=== PATIENT | male | born 1960 | race Caucasian/White ===

== ENCOUNTER 2021-02-22 12:26 | Emergency (ER) | payer BC ==
[~2021-02-22] VITALS: Ht 182.9 cm; Wt 98.0 kg
[2021-02-22] MEDS ORDERED: BISACODYL 10 MG SUPP.RECT PR ONE (13:30)
[2021-02-22] MEDS ORDERED: GLYCERIN ADULT 1 SUPP.RECT. PR ONE (13:30)
--- NOTE | 2021-02-22 14:10 | RAD ---
2 view abdominal series and PA view chest x-ray Clinical indications: Constipation. FINDINGS: No obstructive bowel pattern is evident. No free intraperitoneal air is seen. No significan t air-fluid levels are seen. No significant fecal retention is seen. The osseous structures are intac t. Chest x-ray demonstrates an increase in the interstitium bilaterally without Lew B line's or lung consolidation or lung mass. No pleural effusion or pneumothorax is seen. Heart size is mildly enlarge d. Pulmonary vasculature and mediastinum and both darío are unremarkable. IMPRESSION: No acute abdominal finding is seen. No significant fecal retention. Mild cardiomegaly. Bilateral interstitial thickening which may represent acute/chronic bronchitis or interstitial pneumo nitis. Electronically signed by: Christopher Alicia MD (02/22/2021 2:07 PM) [id number]
--- NOTE | 2021-02-22 14:19 | PHYS DOC ---
Past History Past Surgical History: No Surgical History General Adult EDM: Chief Complaint: CONSTIPATION HPI: HPI: Patient is a 60-year-old male coming in for multiple complaints. Patient states that for the past 3 to 4 days he has had fatigue and nausea. Patient states that he is also felt bloated. He thought he might need to have a bowel movement and so 4 days ago took some milk of magnesia. States that he had some hard stools. Last bowel movement 2 days ago. Patient denies any fevers, cough, vomiting. Denies any medical or surgical history, does not take any medications at home and denies tobacco and drug use. States he drinks occasionally. Has not had his Covid vaccines Review of Systems: Review of Systems: All other systems within normal limits except for as noted in the HPI Current Medications: Current Meds: Current Medications Medications (Trade) Dose Ordered Sig/Kilo Start Time Stop Time Status Last Admin Dose Admin Bisacodyl (Dulcolax Supp) 10 mg 1X ONCE 02/22/21 13:30 02/22/21 13:31 DC 02/22/21 13:47 10 MG Glycerin (Sani-Supp Adult) 1 supp 1X ONCE 02/22/21 13:30 02/22/21 13:31 DC 02/22/21 13:47 1 SUPP Allergies: Allergies: Allergies Coded Allergies Type Severity Reaction Last Updated Verified No Known Drug Allergies 02/22/21 No Physical Exam: PE: Constitutional: Well developed, well nourished, no acute distress, non-toxic appearance. [] HENT: Normocephalic, atraumatic, bilateral external ears normal, nose normal. [] Eyes: PERRLA, conjunctiva normal, no discharge. [] Neck: No rigidity, supple, no stridor. [] Cardiovascular: Regular rate and rhythm, brisk cap refill [] Lungs & Thorax: Non labored symmetric respirations, no tachypnea or respiratory distress [] Abdomen: Soft, nondistended. Skin: Warm, dry, no erythema, no rash. [] Back: Unremarkable Extremities: No deformities, range of motion grossly intact, no lower extremity edema [] Neurologic: Alert and oriented X 3, no focal deficits noted. [] Psychologic: Affect normal, judgement normal, mood normal. [] Current Patient Data: Vital Signs: Vital Signs Date Time Temp Pulse Resp B/P (MAP) Pulse Ox O2 Delivery O2 Flow Rate FiO2 02/22/21 12:50 97.6 57 16 145/90 (108 95 EKG: EKG: Sinus rhythm, heart rate 50 beats minute, normal axis, no isolation or de pression, no ectopy. [] Radiology/Procedures: Radiology/Procedures: [][address] [id number] IMAGING REPORT Signed PATIENT: DONAL HILLS ACCOUNT: [id number] : 1960 LOCATION: ER AGE: 60 SEX: M EXAM STATUS: REG ER ORD. PHYSICIAN: WAGNER BRITT MD REASON: constipation PROCEDURE: ACUTE ABDOMEN SERIES 2 view abdominal series and PA view chest x-ray Clinical indications: Constipation. FINDINGS: No obstructive bowel pattern is evident. No free intraperitoneal air is seen. No significant air-fluid levels are seen. No significant fecal retention is seen. The osseous structures are intact. Chest x-ray demonstrates an increase in the interstitium bilaterally without Lew B line's or lung consolidation or lung mass. No pleural effusion or pneumothorax is seen. Heart size is mildly enlarged. Pulmonary vasculature and mediastinum and both darío are unremarkable. IMPRESSION: No acute abdominal finding is seen. No significant fecal retention. Mild cardiomegaly. Bilateral interstitial thickening which may represent acute/chronic bronchitis or interstitial pneumonitis. Electronically signed by: Heather Alicia MD (02/22/2021 2:07 PM) [id number] DICTATED AND SIGNED BY: HEATHER ALICIA MD DATE: 02/22/21 1403 CC: WAGNER BRITT MD; PCP,NO ~MTH0 0 Heart Score: C/O Chest Pain: No HEART Score for Chest Pain: HEART Score for Chest Pain Response (Comments) Value History Slighlty/Non-Suspicious 0 ECG Normal 0 Age >45 - < 65 1 Risk Factors 1 or 2 Risk Factors 1 Troponin < Normal Limit 0 Total 2 Risk Factors: Risk Factors: DM, Current or recent (<one month) smoker, HTN, HLP, family history of CAD, obesity. Risk Scores: Score 0 - 3: 2.5% MACE over next 6 weeks - Discharge Home Score 4 - 6: 20.3% MACE over next 6 weeks - Admit for Clinical Observation Score 7 - 10: 72.7% MACE over next 6 weeks - Early Invasive Strategies Course & Med Decision Making: Course & Med Decision Making Pertinent Labs and Imaging studies reviewed. (See chart for details) [] Damian Disclaimer: Damian Disclaimer: This electronic medical record was generated, in whole or in part, using a voice recognition dictation system. Departure Departure: Impression: Primary Impression: Person under investigation for COVID-19 Additional Impression: Nausea Disposition: HOME / SELF CARE / HOMELESS Condition: STABLE Referrals: PCP,NO (PCP) Patient Instructions: Nausea, Adult Additional Instructions: You have been tested for or diagnosed with COVID-19. It is an infection caused by a new type of coronavirus. COVID-19 will cause cold-like or mild flu symptoms in most. It can cause more severe symptoms like problems breathing in some. There is no treatment for COVID-19. The body will clear the infection over time. Self-care will help to ease discomfort. Steps to Take: Self-Care Rest as needed. Healthy habits may help you feel better. Steps include: Choose healthy foods including fruits and vegetables. Drink water throughout the day. Get plenty of sleep each night. If you smoke, try to quit. It may ease breathing. Avoid alcohol. Keep Others Healthy The virus can spread to others. Droplets are released every time you sneeze or cough. The droplets can get into the mouth, nose, or eyes of people near you and lead to infection. To lower the chances of spreading COVID-19 to others: Stay at home until your doctor has said it is safe to leave. If you tested positive this will mean staying isolated until both of the following are true: At least 7 days have passed since the start of illness. You are free of fever for at least 72 hours without the use of medicine. During this time: - Avoid public areas, events, or transportation. Do not return to work or school until your doctor has said it is safe to do so. - Call ahead if you need to go to a medical center. Let them know you may have COVID-19. It will help them guide you where to go. They may also ask you to wear a facemask when you come to the office. - If you call for emergency medical services, let them know you may have COVID- 19. While at home: - Try to avoid close contact with others. Stay about 6 feet away. - If possible, spend most of your time in a separate room from others. - Use a face mask if you will be in close contact with others such as sharing a room or vehicle. - Have someone wipe down common surfaces in the home. Use household master deputy sheriff court security every day on areas like doorknobs, counters, or sinks. - Cough or sneeze into a tissue. Throw the tissue away right after use. If a tissue is not available, cough or sneeze into your elbow. - Wash your hands often. Wash them after sneezing or coughing. Use soap and water and wash for at least 20 seconds. Alcohol based hand machine heddle cleaner can be used if soap and water is not available. - Do not prepare food for others. Avoid sharing personal items like forks, spoons, or toothbrushes. - Avoid close contact with pets while you are sick. There is no evidence of the virus passing to pets. This is a safety step until more is known about this virus. Isolation can be frustrating. Social interaction can help. Keep in touch with friends and family through phone and tech options. You can still interact with others in your home, just keep a safe distance of about 6 feet. Follow-up: Your doctors office will check in with you to see if there are any changes in your health. You may be asked to keep track of symptoms to share with them. They will also let you know when you are clear to be in public again. Problems to Look Out For: Contact your doctor if your recovery is not going as you expect. Get emergency care if you have problems such as: - Trouble breathing - Nonstop chest pain or pressure - Changes in awareness, confusion, or problems waking - Lips or face have bluish color - Worsening of symptoms If you think you have an emergency, call for emergency medical services right away. As taken from [facility] Ondansetron (ONDANSETRON ODT) 4 Mg Tab.rapdis 1 TAB PO PRN Q6-8HRS for nausa, #16 TAB Prov: WAGNER BRITT MD 02/22/21 WAGNER BRITT MD Feb 22, 2021 14:19
[2021-02-22 15:10] LABS: BILIRUBIN,URINE NEG (NEG); CLARITY,URINE CLEAR; COLOR,URINE YELLOW; GLUCOSE,URINE NEG (NEG)
[2021-02-22 15:11] LABS: BACTERIA,URINE 0 /HPF (0-FEW); NITRITE,URINE NEG (NEG); RBC,URINE 0 /HPF (0-2); SQUAMOUS EPITHELIAL CELL,UR OCC /LPF; UROBILINOGEN,URINE 0.2 mg/dL (0.2 mg/dL); WBC,URINE 0 /HPF (0-4)
--- NOTE | 2021-02-22 15:24 | EKG ---
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
[2021-02-22 15:29] LABS: CALCIUM 8.7 mg/dL (8.5-10.1); CREATININE 0.8 mg/dL (0.7-1.3); GFR 98.9; POTASSIUM 4.5 mmol/L (3.5-5.1)
[2021-02-22 15:39] LABS: ALBUMIN 3.5 g/dL (3.4-5.0); ALBUMIN/GLOBULIN RATIO 0.9 (1.0-1.7); MAGNESIUM 2.4 mg/dL (1.8-2.4); PHOSPHORUS 3.9 mg/dL (2.6-4.7); TOTAL PROTEIN 7.5 g/dL (6.4-8.2)
[2021-02-22 16:05] LABS: BASO % 1 % (0-3); EOS % 1 % (0-3); HEMATOCRIT 44.5 % (39.0-53.0); HEMOGLOBIN 15.2 g/dL (13.0-17.5); LYMPH % 28 % (24-48); MEAN CORPUSCULAR HEMOGLOBIN 31 pg (25-35); MEAN CORPUSCULAR HGB CONC 34 g/dL (31-37); MEAN CORPUSCULAR VOLUME 92 fL (79-100); MONO # 0.3 x10^3/uL (0.0-1.1); MONO % 9 % (0-9); NEUT # 2.2 x10^3uL (1.8-7.7); NEUT % 61 % (31-73); PLATELET COUNT 161 x10^3/uL (140-400); RED BLOOD COUNT 4.86 x10^6/uL (4.30-5.70); RED CELL DISTRIBUTION WIDTH 12.8 % (11.5-14.5); WHITE BLOOD COUNT 3.6 x10^3/uL (4.0-11.0)
[2021-02-22 16:20] VITALS: BP 143/77
[2021-02-22] MEDS ORDERED: ONDA4TAB12 PO (16:32)
== END 2021-02-22 17:00 | disposition home or self-care (01) ==
LOC: ER 12:26
DX: U07.1 COVID-19 (principal)
CPT/HCPCS: 36415; 74022; 80053; 81001; 83735; 83880; 84100; 84484; 85025; 93005; 99285; C9803; U0003

== ENCOUNTER 2021-06-16 12:36 | Emergency (ER) | payer BC ==
[~2021-06-16] VITALS: Ht 172.7 cm; Wt 97.1 kg
[~2021-06-16 12:36] MED LIST: ONDA4TAB12 PO
[2021-06-16] MEDS ORDERED: IV NORMAL SALINE 1,000ML 1,000 ML IV SCH (13:00)
--- NOTE | 2021-06-16 13:01 | PHYS DOC ---
Past History Past Surgical History: No Surgical History Smoking: Non-smoker Alcohol Use: Rarely Drug Use: None Adult General HPI HPI Patient is a 60-year-old male presenting for nausea vomit diarrhea. This is an acute issue. Reports symptoms started approximately 72 hours ago, only potential concerning ingestion at that time was a quick trip hot dog. Also reports sick contact, his mother who has had similar symptoms. Nonetheless, reports 2 days ago presenting to local urgent care where he was seen and evaluated, ultimately administered an antiemetic injection which temporarily improved his symptoms. Yesterday, he followed up with his primary care physician and at that time had KUB performed that was unremarkable and he was discharged home with supportive care practices. Nonetheless, he presents for ongoing nausea, vomiting and loose stools. Reports since symptom onset he has had approximately 6 episodes of nonbloody nonbilious emesis. He also reports looser stools than usual without diarrhea; however, reports that he has been constipated past 24 hours. Denies any medical issues and takes no medications on a daily basis. He is unvaccinated against COVID-19 with no obvious COVID-19 contact. Review of Systems Review of Systems Fourteen body systems of review of systems have been reviewed. See HPI for pertinent positives and negative responses, other meier all other systems are negative, non-pertinent or non-contributory Allergies Allergies Allergies Coded Allergies Type Severity Reaction Last Updated Verified No Known Drug Allergies 02/22/21 No Physical Exam Physical Exam Constitutional: Well developed, well nourished, no acute distress, non-toxic appearance. HENT: Normocephalic, atraumatic, bilateral external ears normal, oropharynx moist, no oral exudates, nose normal. Eyes: PERRLA, EOMI, conjunctiva normal, no discharge. Neck: Normal range of motion, no tenderness, supple, no stridor. Cardiovascular: Heart rate regular, sinus rhythm, no murmurs rubs or gallops Lungs & Thorax: Bilateral breath sounds clear to auscultation Abdomen: Bowel sounds normal, soft, no tenderness, no masses, no pulsatile tj s. Nonsurgical abdomen, no peritoneal signs Skin: Warm, dry, no erythema, no rash. Back: No tenderness, no CVA tenderness. Extremities: No tenderness, no cyanosis, no clubbing, ROM intact, no edema. Neurologic: Alert and oriented X 3, grossly normal motor & sensory function, no focal deficits noted. Psychologic: Affect normal, judgement normal, mood normal. Current Patient Data Vital Signs Vital Signs Date Time Temp Pulse Resp B/P (MAP) Pulse Ox O2 Delivery O2 Flow Rate FiO2 06/16/21 13:26 98.4 63 20 176/108 (130) 98 Room Air Vital Signs Date Time Temp Pulse Resp B/P (MAP) Pulse Ox O2 Delivery O2 Flow Rate FiO2 06/16/21 13:26 98.4 63 20 176/108 (130) 98 Room Air Lab Results Laboratory Tests Test 06/16/21 12:54 06/16/21 13:02 06/16/21 13:12 Glucose (Fingerstick) 109 mg/dL White Blood Count 5.4 x10^3/uL Red Blood Count 4.87 x10^6/uL Hemoglobin 15.1 g/dL Hematocrit 44.1 % Mean Corpuscular Volume 91 fL Mean Corpuscular Hemoglobin 31 pg Mean Corpuscular Hemoglobin Concent 34 g/dL Red Cell Distribution Width 13.4 % Platelet Count 194 x10^3/uL Neutrophils (%) (Auto) 68 % Lymphocytes (%) (Auto) 23 % Monocytes (%) (Auto) 6 % Eosinophils (%) (Auto) 3 % Basophils (%) (Auto) 0 % Neutrophils # (Auto) 3.7 x10^3uL Lymphocytes # (Auto) 1.2 x10^3/uL Monocytes # (Auto) 0.3 x10^3/uL Eosinophils # (Auto) 0.1 x10^3/uL Basophils # (Auto) 0.0 x10^3/uL Sodium Level 142 mmol/L Potassium Level 4.1 mmol/L Chloride Level 104 mmol/L Carbon Dioxide Level 27 mmol/L Anion Gap 11 Blood Urea Nitrogen 13 mg/dL Creatinine 0.7 mg/dL Estimated GFR (Cockcroft-Gault) 115.4 BUN/Creatinine Ratio 19 Glucose Level 113 mg/dL Calcium Level 8.6 mg/dL Total Bilirubin 0.9 mg/dL Aspartate Amino Transf (AST/SGOT) 23 U/L Alanine Aminotransferase (ALT/SGPT) 28 U/L Alkaline Phosphatase 105 U/L Troponin I High Sensitivity 7 ng/L Total Protein 6.8 g/dL Albumin 3.4 g/dL Albumin/Globulin Ratio 1.0 Influenza Type A (Rapid) Negative Influenza Type B (Rapid) Negative SARS-CoV-2 Antigen (Rapid) Negative Current Medications Medications (Trade) Dose Ordered Sig/Kilo Route PRN Reason Start Time Stop Time Status Last Admin Dose Admin Sodium Chloride 1,000 ml @ 1,000 mls/hr Q1H IV 06/16/21 13:00 06/16/21 13:59 DC 06/16/21 12:40 EKG EKG EKG ordered and interpreted by myself 1312 hrs. as sinus rhythm at 54 bpm, unremarkable intervals, no axis deviation, no acute ischemic findings, no STEMI Radiology/Procedures Radiology/Procedures EXAM: Chest, single view. HISTORY: Fatigue. COMPARISON: None. FINDINGS: A frontal view of the chest is obtained. There is no infiltrate, pleural effusion or pneumothorax. The heart is normal in size. There is an incidental healed left clavicle fracture. IMPRESSION: No acute pulmonary finding. Electronically signed by: Mayuri Talley MD (06/16/2021 1:25 PM) [id number] Heart Score C/O Chest Pain: No HEART Score for Chest Pain: HEART Score for Chest Pain Response (Comments) Value History Slighlty/Non-Suspicious 0 ECG Normal 0 Age >45 - < 65 1 Risk Factors 1 or 2 Risk Factors 1 Troponin < Normal Limit 0 Total 2 Risk Factors: Risk Factors: DM, Current or recent (<one month) smoker, HTN, HLP, family history of CAD, obesity. Risk Scores: Risk Factors: DM, Current or recent (<one month) smoker, HTN, HLP, family history of CAD, obesity. Course & Med Decision Making Course & Med Decision Making ABCs unremarkable HPI physical exam and comprehensive ER work-up nonconcerning for any emergent or surgical issues Patient complaining of gross fatigue, cannot exclude COVID-19 in an otherwise unvaccinated individual with PCR test pending. Appropriate self quarantine and supportive care instructions advised Patient later discloses that he has had extensive stress in outpatient setting at work, is very disgruntled about things relating to work and does not want to work. I question if visit today is regarding this? No SI/HI. I question underlying depression/adjustment disorder Ultimately, no indication for further diagnostic work-up and/or need for admission. Strict return precautions discussed with good understanding by patient, all questions and concerns addressed prior to ER departure Damian Disclaimer Dragedith Disclaimer This electronic medical record was generated, in whole or in part, using a voice recognition dictation system. Departure Departure: Impression: Primary Impression: Nausea & vomiting Additional Impression: Person under investigation for COVID-19 Disposition: HOME / SELF CARE / HOMELESS Condition: STABLE Referrals: JOSE RAFAEL VAIL APRN (PCP) Patient Instructions: Nausea and Vomiting Additional Instructions: You were seen for weakness, nausea, vomit, stool issues,, and possible infection with COVID-19. Your physical exam was reassuring. Your chest x-ray and remaining diagnostic work-up was normal. We tested you for COVID-19 but this test does not come back for 1 to 2 days. In the meantime you need to quarantine yourself at home away from all other individuals, especially those who are elderly or have any other chronic health issues or an immunocompromised status. Alternate Tylenol and ibuprofen as needed for body aches and pain. If your test does come back positive you need to quarantine yourself for 10 days until symptom-free. You should make sure to drink plenty of fluids and get plenty of rest. You should return to the ED if you develop worsening cough, shortness of breath, chest pain, or any other new or concerning symptoms. Problem Qualifiers HOWARD POTTER DO Jun 16, 2021 13:01
[2021-06-16 13:24] LABS: BASO % 0 % (0-3); EOS # 0.1 x10^3/uL (0.0-0.7); EOS % 3 % (0-3); HEMATOCRIT 44.1 % (39.0-53.0); HEMOGLOBIN 15.1 g/dL (13.0-17.5); LYMPH # 1.2 x10^3/uL (1.0-4.8); LYMPH % 23 % (24-48); MEAN CORPUSCULAR HEMOGLOBIN 31 pg (25-35); MEAN CORPUSCULAR HGB CONC 34 g/dL (31-37); MEAN CORPUSCULAR VOLUME 91 fL (79-100); MONO # 0.3 x10^3/uL (0.0-1.1); MONO % 6 % (0-9); NEUT # 3.7 x10^3uL (1.8-7.7); NEUT % 68 % (31-73); PLATELET COUNT 194 x10^3/uL (140-400); RED BLOOD COUNT 4.87 x10^6/uL (4.30-5.70); RED CELL DISTRIBUTION WIDTH 13.4 % (11.5-14.5); WHITE BLOOD COUNT 5.4 x10^3/uL (4.0-11.0)
[2021-06-16 13:26] VITALS: BP 176/108
--- NOTE | 2021-06-16 13:28 | RAD ---
EXAM: Chest, single view. HISTORY: Fatigue. COMPARISON: None. FINDINGS: A frontal view of the chest is obtained. There is no infiltrate, pleural effusion or pneumo thorax. The heart is normal in size. There is an incidental healed left clavicle fracture. IMPRESSION: No acute pulmonary finding. Electronically signed by: Mayuri Talley MD (06/16/2021 1:25 PM) [id number]
[2021-06-16 13:36] LABS: CALCIUM 8.6 mg/dL (8.5-10.1); CREATININE 0.7 mg/dL (0.7-1.3); GFR 115.4; POTASSIUM 4.1 mmol/L (3.5-5.1)
[2021-06-16 13:42] LABS: INFLUENZA A PATIENT NEGATIVE (NEGATIVE); INFLUENZA B PATIENT NEGATIVE (NEGATIVE)
[2021-06-16 13:42] LABS: ALBUMIN 3.4 g/dL (3.4-5.0); TOTAL BILIRUBIN 0.9 mg/dL (0.2-1.0); TOTAL PROTEIN 6.8 g/dL (6.4-8.2)
--- NOTE | 2021-06-16 14:08 | EKG ---
[address] [address] Test Date: 2021-06-16 Test Time: 13:08:32 Pat Name: DONAL HILLS Department: Room: Gender: M Service Line Coordinator: ALEX : 1960 Requested By: HOWARD POTTER Order Number: [id number] Reading MD: Measurements Intervals [place] Rate: 54 P: 29 AL: 152 QRS: 8 QRSD: 98 T: 47 QT: 410 QTc: 394 Interpretive Statements SINUS RHYTHM NORMAL ECG RI6.02 No previous ECG available for comparison
== END 2021-06-16 14:20 | disposition home or self-care (01) ==
LOC: ER 12:36
DX: R11.2 Nausea with vomiting, unspecified (principal); R19.7 Diarrhea, unspecified; Z20.822 Contact with and (suspected) exposure to COVID-19
CPT/HCPCS: 71045; 80053; 82947; 84484; 85025; 87428; 93005; 96360; 99285; C9803; J7030; U0003